=== PATIENT | female | born 1970 | race Caucasian/White ===

== ENCOUNTER 2017-04-27 13:18 | Emergency (ER) | payer OTHER ==
--- NOTE | 2017-04-27 14:02 | EDPHY ---
H & P Time Seen by Provider: 04/27/17 13:56 HPI/ROS: CHIEF COMPLAINT: Left wrist pain HISTORY OF PRESENT ILLNESS: 47-year-old [id number] female complaining of acute left wrist pain after she was [place] the [employer] [place], slipped on mud landing on her outstretched left hand which landed in mud. No paresthesia. Only complaint is left wrist pain. PHYSICAL EXAM (Prior to examination, patient consented to physical exam, hands were washed and my usual and customary physical exam procedures followed) 1) GENERAL: Well-developed, well-nourished, alert and oriented. Appears to be in no acute distress. 2) HEAD: Normocephalic 3) HEENT: Pupils equal, round, reactive to light bilaterally. 4) LUNGS: Breathing comfortably. 5) MUSCULOSKELETAL: Tender to palpation with dorsal deformity noted on the left wrist. Soft compartments. Normal coloration. 6) SKIN: Patient has mud on her skin. No blood. No puncture wounds. No tenting of the skin. 7) VASCULAR: pulses and cap refill present are brisk 8) NEUROLOGIC: Radial, ulnar, median nerve function intact with no deficits appreciated on exam DIFFERENTIAL DIAGNOSIS: in no particular order including but not limited to fracture, sprain, compartment syndrome F F Smoking Status: Never smoked Constitutional: Initial Vital Signs Temperature (C) 36.6 C 04/27/17 13:26 Heart Rate 86 04/27/17 13:26 Respiratory Rate 22 H 04/27/17 13:26 Blood Pressure 135/90 H 04/27/17 13:26 O2 Sat (%) 99 04/27/17 13:26 O2 Delivery Mode Room Air Allergies/Adverse Reactions: No Known Allergies Allergy (Unverified 04/27/17 13:26) Home Medications: Medication Instructions Recorded oxyCODONE/APAP 5/325 [Percocet 1 tab PO Q6 #10 tab 04/27/17 5/325] MDM/Departure - MDM Imaging Results: Imaging Impressions Wrist X-Ray 04/27/17 13:28 Impression: Comminuted, displaced, and angulated distal radius fracture with dorsal angulation and probable intraarticular extension. Wrist X-Ray 04/27/17 14:56 Impression: Reduction of the comminuted fracture distal left radius, as above. Images reviewed myself Procedures: Procedure: Fracture reduction Indication: Fracture of the distal radius Indications, risks and benefits discussed with patient and consent obtained. A hematoma block of 0.5% bupivicaine placed by myself. Traction and countertraction applied achieving a visible and palpable reduction. The area was splinted with sugar-tong Orthoglass splint and sling. After application of the splint I returned and re-examined the patient. The splint was adequately immobilizing the joint and distal to the splint the patient's circulation and sensation were intact. Patient shows no signs of compartment syndrome. Was given orthopedic precautions. Medications Given: Discontinued Medications Hydrocodone Bitart/Acetaminophen ([place] 5/325) 1 tab PO EDNOW ONE Stop: 04/27/17 14:08 Last Admin: 04/27/17 14:12 Dose: 1 tab ED Course/Re-evaluation: Patient was re-evaluated with serial exams most recently at 3:20 p.m.. Reviewed her x-rays. She has been given copies of her x-rays as she has a [place] patient. She does have more neutral alignment after closed reduction with hematoma block. She remains neurovascularly intact. She will need follow- up with orthopedics as this will require further orthopedic management. Via she has no evidence of compartment syndrome. Has been given usual customary orthopedic precautions and instructions and feels comfortable being discharged home. - Depart Disposition: Home, Routine, Self-Care Clinical Impression: Fracture of left distal radius Qualifiers: Encounter type: initial encounter Fracture type: closed Fracture morphology: Colles' Qualified Code(s): S52.532A - Colles' fracture of left radius, initial encounter for closed fracture Condition: Good Instructions: Wrist Fracture in Adults (ED) Additional Instructions: Return to the ER immediately if you experience discoloration, have worsening pain, numbness, tingling, or any other symptoms that concern you. If you received x-rays in the emergency department today, be advised, that ligamentous , tendon, muscular, and other non-bony injury cannot be fully ruled out. Try to keep your affected extremity elevated above the level of your chest, and keep cold packs on the affected area, for the next 48 hours. Prescriptions: oxyCODONE/APAP 5/325 [Percocet 5/325] 1 tab PO Q6 #10 tab Referrals: Follow-up, with [facility] in 1-3 days [Other] - As per Instructions
[2017-04-27] MEDS ORDERED: HYDROCODONE/APAP 5/325 TAB ONE (14:06)
[2017-04-27] MEDS ORDERED: HYDROCODONE/APAP 5/325 TAB PO ONE (14:07)
[2017-04-27 15:47] VITALS: BP 130/74; PULSE 70; RESP 16; TEMP 98.4; O2SAT 94
== END 2017-04-27 15:45 | disposition home or self-care (01) ==
PROC: 0PSJXZZ Reposition Left Radius, External Approach (ICD-10-PCS; principal; 2017-04-27)
DX: S52.532A Colles' fracture of left radius, initial encounter for closed fracture (principal); W01.0XXA Fall on same level from slipping, tripping and stumbling without subsequent striking against object, initial encounter